=== PATIENT | male | born 1985 | race Caucasian/White ===

== ENCOUNTER 2017-12-27 17:37 | Emergency (ER) | payer SELFPAY ==
[~2017-12-27] VITALS: Ht 175.3 cm; Wt 90.0 kg
[2017-12-27] MEDS ORDERED: BACTRIM DS1 TAB PO (18:01)
[2017-12-27] MEDS ORDERED: CEPHALEXIN500 MG PO (18:01)
[2017-12-27 18:06] VITALS: BP 137/85
== END 2017-12-27 18:14 | disposition home or self-care (01) | DRG 159 ==
LOC: ED 17:37
PROC: 0H91XZZ Drainage of Face Skin, External Approach (ICD-10-PCS; principal; 2017-12-27)
DX: K12.2 Cellulitis and abscess of mouth (principal); B95.62 Methicillin resistant Staphylococcus aureus infection as the cause of diseases classified elsewhere; F17.210 Nicotine dependence, cigarettes, uncomplicated

== ENCOUNTER 2017-12-28 09:05 | Emergency (ER) | payer SELFPAY ==
[~2017-12-28] VITALS: Ht 175.3 cm; Wt 90.0 kg
[~2017-12-28 09:05] MED LIST: BACTRIM DS1 TAB PO; CEPHALEXIN500 MG PO
[2017-12-28 10:35] VITALS: BP 131/85
== END 2017-12-28 10:35 | disposition home or self-care (01) | DRG 951 ==
LOC: ED 09:05
DX: Z48.01 Encounter for change or removal of surgical wound dressing (principal); F17.210 Nicotine dependence, cigarettes, uncomplicated